=== PATIENT | female | born 1975 | race Caucasian/White ===

== ENCOUNTER 2016-10-15 17:05 | Observation (INO) | payer SELFPAY ==
--- NOTE | ~2016-10-15 | HP ---
History And Physical [id number] [place]. [address] NAME: TOLU ORTEGA : 79 STATUS : ADM Julita PAT#: [id number] AGE: 41 ADM/REG DATE : 10/16/16 MR#: [id number] REPORT SERV DATE: 10/16/16 DICTATED BY: LORNE POEPLES DATE: 10/16/16 REPORT STATUS : Draft TRANSCRIBED BY: MODChristopher DATE: 10/16/16 DATE OF ADMISSION: 10/16/2016 PRIMARY CARE PHYSICIAN: [place] (has appointment on 10/18). PSYCHIATRIST: Viky. CHIEF COMPLAINT: Atypical chest, back, and abdominal pain. HISTORY OF PRESENT ILLNESS: A 41-year-old white female with no known history of CAD states that for the past two days she has had "constant back pain and chest pain" and reports her abdomen has been bloated for the last two to three weeks. She reports regular bowel movements, most recently on October 15. She describes her chest pain as a heaviness and her back pain as a stabbing sensation. At its most intense, she rates her chest pain an 8/10. At time of interview in the [facility], she rates it a 7/10 and is requesting pain medication. Prior to coming to the hospital, she did take some doses of Tylenol with no improvement in her symptoms. The patient denies any personal history of myocardial infarction, stroke, DVT, or pulmonary embolus. The patient denies any recent fever or chills. Describes occasional palpitations. Consumes one to two cups of coffee per day. No syncopal episodes. Denies PND or orthopnea. PAST MEDICAL HISTORY: 1. History of bipolar disorder. 2. Seizure disorder, last seizure 09/2016. 3. Hypertension. 4. Cholesterol, followed by PCP and reportedly "fine.". 5. Denies diabetes. 6. Cirrhosis of the liver. 7. Fibromyalgia. 8. Neuropathy. 9. DDD leading to chronic back pain, previously followed by Pain Management. 10.Hypothyroid, on replacement. 11.Asthma. 12.Obesity. 13.Migraine headaches. 14.Positive family history for early CAD. 15.Ongoing tobacco use. 16.Homeless. PAST SURGICAL HISTORY: 1. Three C-sections. 2. Two laparoscopic surgeries for endometriosis. 3. Hysterectomy. SOCIAL HISTORY: She is single. She has four children. She is unemployed and homeless. History And Physical [address] [place]. [address] NAME: TOLU ORTEGA : 79 STATUS : ADM Julita PAT#: [id number] AGE: 41 ADM/REG DATE : 10/16/16 MR#: [id number] REPORT SERV DATE: 10/16/16 DICTATED BY: LORNE PEOPLES DATE: 10/16/16 REPORT STATUS : Draft TRANSCRIBED BY: ABDELRAHMAN DATE: 10/16/16 Does not have an exercise routine. One pack of cigarettes last two weeks, quit smoking, to excess March 2016, but does continue to drink rarely. Reports that she drank too excess for approximately one year. Denies illicits. FAMILY HISTORY: Mother with "heart issues." Father with CAD and stents in his 50s, remains alive at 70. REVIEW OF SYSTEMS: A 14-point review of systems performed, significant for HPI including snores per report with no formal sleep study. Otherwise, complete review of systems obtained and negative. ALLERGIES: NSAIDS, HIVES, ULCERS; ASPIRIN, HIVES, ULCERS; ROBAXIN, HIVES; DECADRON, CLINDAMYCIN, HIVES, NAUSEA; AUGMENTIN, LATEX, RASH, HIVES; ACETAMINOPHEN, FATTY LIVER. HOME MEDICINES: ProAir p.r.n., Xanax 1 mg four times daily, Zyrtec 10 mg nightly, Cymbalta 60 mg twice daily, Lexapro 20 mg daily, Flonase p.r.n., Neurontin 800 mg twice daily and 400 mg with lunch, Keppra XR 1000 daily and 500 at bedtime, levothyroxine 75 mcg daily, lisinopril/HCTZ 20/25 daily, Zyprexa 2.5 mg twice daily, Topamax 75 mg nightly, Desyrel 100 mg nightly, testosterone daily. PHYSICAL EXAMINATION: BLOOD PRESSURE: Bilateral blood pressures on arrival, right 132/77, left 126/71. PULSE: 79. RESPIRATORY RATE: 18. TEMPERATURE: 98.4. O2 saturation 98% on room air. HEIGHT: 5 feet 6 inches. WEIGHT: 196 pounds. BMI 31.6. GENERAL: Cooperative, in no apparent distress. HEENT: Pupils 2 mm, sclera nonicteric. Nares patent. Moist mucous membranes. No xanthelasma. NECK: Trachea midline, no thyromegaly. No JVD. No bruits. LYMPH: No cervical lymphadenopathy. No supraclavicular lymphadenopathy. RESPIRATORY: Unlabored respirations. Breath sounds clear bilaterally to posterior auscultation. No wheezes or rhonchi. Diminished in the bases. Poor inspiratory effort. CARDIOVASCULAR: Regular rate. No murmur, rub or gallop appreciated. Extremities without edema. Pulses 2+ bilaterally. ABDOMEN: Soft, nontender, normal bowel sounds auscultated throughout. No organomegaly. Obese and distended. SKIN: Warm, dry extremities. No pallor, or cyanosis. PSYCHIATRIC: Appropriate affect. Alert, oriented x3. LABORATORY DATA: Troponin less than 0.02 twice. Potassium 3.9, BUN 19, creatinine 1.32, glucose 100, magnesium 1.8. Ammonia 52. BNP 2.7. WBC 6.8, hemoglobin 12.5, hematocrit 37.3, platelet count 341,000. D-dimer 0.76. UA normal. EKG, sinus rhythm. CT abdomen and pelvis without contrast, appendix distended at 0.9 cm, stable since June 2016 and enlarged since November 2015 exams. No adjacent inflammation to further suggest acute appendicitis. No CT evidence of cirrhosis and no ascites. Tiny fat containing umbilical hernia. History And Physical [address] [address] NAME: TOLU ORTEGA : 79 STATUS : ADM Julita PAT#: [id number] AGE: 41 ADM/REG DATE : 10/16/16 MR#: [id number] REPORT SERV DATE: 10/16/16 DICTATED BY: LORNE PEOPLES DATE: 10/16/16 REPORT STATUS : Draft TRANSCRIBED BY: MODL DATE: 10/16/16 CTA of chest, no evidence of PE. No thoracic aortic aneurysm or dissection demonstrated. Right middle lobe and right upper lobe 4 mm noncalcified pulmonary nodule with recommended CT scan in 12 months. Mild dependent atelectatic changes in the lungs bilaterally. ASSESSMENT AND PLAN: 1. Atypical chest pain. The patient has been observed in the [facility] overnight to rule out myocardial infarction. Two sets of cardiac markers negative. EKG stable. N.p.o. for MPI today, home if negative study. If anything suggestive of ischemia, Cardiology referral will be initiated. Otherwise, the patient has an appointment with her PCP on October 18 and she has been instructed to keep that. 2. Abdominal distention. CT of the abdomen and pelvis unchanged from June 2016. We will check an amylase and lipase. Follow up with her PCP on 10/18/2016 as scheduled. 3. Homeless. The patient states that she will not be allowed to go back to the family home. Will ask Case Management and/or Social Work to see regarding chcf placement after discharge. 4. Ongoing tobacco use. Counseled regarding complete cessation. 5. Previous alcohol abuse. Reportedly quit in March 2016 per report, consumes alcohol rarely. Counseled regarding complete cessation. 6. Chronic pain. The patient requests pain meds during interview to be prescribed at discharge. The patient to follow up with PCP on 10/18 as scheduled. MELY/ABDELRAHMAN Lorne Peoples, MSN, NAIL MACHINE OPERATOR-BC / [id number]
[~2016-10-15 17:05] MED LIST: ACET500CAP PO; ACT300 PO; B1100 PO; CYMBALTA60 PO; FLONASE NAS; IMOD PO; KEPPRA XR500 MG PO; KLONO1 PO; KLOR-CON M2020 MEQ PO; LEVOTHYROXIN75 MCG PO; LEXAPRO20 PO; NEUR400 PO; NYS500UDL PO; OXYCON10 PO; PREV15 PO; PROAIR HFA INH; SUCR PO; TESTOSTERONE TROCHE SL; TOPAMAX25 PO; VITAMIN B-12 PO; VITE PO; XANAX1 MG PO; ZESTORETIC1 TA1 PO; ZYRTEC ALLGY10 MG PO
[2016-10-15 18:03] LABS: BASOPHILS 0.4 %; BASOPHILS ABSOLUTE 0.03 10/3/uL (0.0-0.16); EOSINOPHILS 0.6 %; EOSINOPHILS ABSOLUTE 0.04 10/3/uL (0.0-0.53); ER CBC TAT 0 Hrs 07 Mins; HEMATOCRIT 37.3 % (36.0-48.0); HEMOGLOBIN 12.5 g/dL (12.0-16.0); IMMATURE GRANULOCYTES 0.3 %; IMMATURE GRANULOCYTES ABSOLUTE 0.02 10/3/uL (0.0-0.11); LYMPHOCYTES 30.1 %; LYMPHOCYTES ABSOLUTE 2.05 10/3/uL (0.67-4.30); MEAN CORPUS HGB CONC 33.5 g/dL (32.0-36.0); MEAN CORPUSCULAR HEMOGLOB 31.6 pg (26.0-34.0); MEAN CORPUSCULAR VOLUME 94.4 fL (80-100); MEAN PLATELET VOLUME 9.8 fL (9.2-13.0); MONOCYTES 9.4 %; MONOCYTES ABSOLUTE 0.64 10/3/uL (0.21-1.20); NEUTROPHILS 59.2 %; NEUTROPHILS ABSOLUTE 4.03 10/3/uL (2.02-8.40); PLATELET COUNT 341 10/3/uL (150-400); RBC DISTRIBUTION WIDTH 14.8 % (12.0-16.0); RED CELL COUNT 3.95 10/6/uL (4.0-5.6); WHITE BLOOD CELLS 6.8 10/3/uL (4.5-10.5)
[2016-10-15 18:04] LABS: MANUAL DIFF NO %
[2016-10-15 18:22] LABS: CALCIUM, SERUM 8.5 MG/DL (8.5-10.4); CHEST PAIN PROFILE TAT 0 Hrs 26 Mins; CHLORIDE, SERUM 105 MMOL/L (96-112); CO2 (CARBON DIOXIDE) 27 MMOL/L (24-34); POTASSIUM, SERUM 3.9 MMOL/L (3.5-5.3); SODIUM, SERUM 140 MMOL/L (135-148); TROPONIN I <0.02 NG/ML (<0.05)
[2016-10-15 18:27] LABS: BUN (BLOOD UREA NITROGEN) 19 MG/DL (6-23); CREATININE 1.32 MG/DL (0.55-1.02); GFR AFRICAN AMERICAN 59 ML/MIN (>=60); GFR NON AFRICAN AMERICAN 51 ML/MIN (>=60); GLUCOSE, SERUM 100 MG/DL (60-99)
[2016-10-15] MEDS ORDERED: NEUR400 PO (19:03)
[2016-10-15] MEDS ORDERED: KEPPRA XR500 MG PO (19:04)
[2016-10-15] MEDS ORDERED: TESTOSTERONE PO (19:08)
[2016-10-15] MEDS ORDERED: TRAZ100 PO (19:08)
[2016-10-15] MEDS ORDERED: FLONASE NAS (19:08)
[2016-10-15] MEDS ORDERED: ZESTORETIC1 TA1 PO (19:08)
[2016-10-15] MEDS ORDERED: TOPAMAX25 PO (19:09)
[2016-10-15] MEDS ORDERED: ZYP2 PO (19:09)
[2016-10-15] MEDS ORDERED: CYMBALTA60 PO (19:09)
[2016-10-15] MEDS ORDERED: XANAX1 MG PO (19:10)
[2016-10-15 19:30] LABS: ASCORBIC ACID (UR NOT ORDER) NEG (NEG); BILIRUBIN, URINE NEGATIVE (NEG); ER URINALYSIS TAT 0 Hrs 16 Mins; KETONE, URINE NEGATIVE (NEG); LEUKOCYTE ESTERASE(NOT OR NEG (NEG); NITRITE (URINE) NEG (NEG); WBC (NOT ORDERED) (RFLEX) 2 (0-5)
[2016-10-15 20:26] LABS: PARTIAL THROMBO TIME 27.1 SEC (22.5-37.2)
[2016-10-15 20:35] LABS: ALBUMIN 3.3 G/DL (3.5-5.0); SGOT(AST) 15 U/L (5-40); SGPT(ALT) 25 U/L (5-65); TOTAL BILIRUBIN 0.2 MG/DL (0-1.2); TOTAL PROTEIN 6.7 G/DL (6.0-8.5)
[2016-10-15 20:36] LABS: ALKALINE PHOSPHATASE 76 U/L (45-117); DIRECT BILIRUBIN < 0.1 MG/DL (0.0-0.4); INDIRECT BILIRUBIN(NOT ORDER) 0.1 MG/DL (0.1-0.9)
[2016-10-15 20:40] LABS: D-DIMER QUANTITATIVE 0.76 ug/mLFEU (< 0.50)
[2016-10-16 03:54] LABS: TROPONIN I <0.02 NG/ML (<0.05)
== END 2016-10-16 14:29 | disposition home or self-care (01) ==
LOC: ER 17:05 → CDU1 10-16 01:06 → CDU2 10-16 01:38
PROVIDERS: Clinical Nurse Specialist; Emergency Medicine
DX: R07.89 Other chest pain (principal); R14.0 Abdominal distension (gaseous); G89.29 Other chronic pain; I10 Essential (primary) hypertension; M79.7 Fibromyalgia; G62.9 Polyneuropathy, unspecified; E03.9 Hypothyroidism, unspecified; J45.909 Unspecified asthma, uncomplicated; E66.9 Obesity, unspecified; G43.909 Migraine, unspecified, not intractable, without status migrainosus; Z90.710 Acquired absence of both cervix and uterus; Z91.040 Latex allergy status; Z88.1 Allergy status to other antibiotic agents; Z88.8 Allergy status to other drugs, medicaments and biological substances; Z91.030 Bee allergy status; Z79.899 Other long term (current) drug therapy
CPT/HCPCS: 71010; 71275; 74176; 78452; 80048; 80076; 81001; 82140; 82150; 83690; 83735; 83880; 84484; 85025; 85379; 85610; 85730; 93005; 93017; 96374; 96375; 96376; 99285; A9270-GY; A9502; G0378; J1170; J2405; Q9967

== ENCOUNTER 2016-11-15 14:32 | Emergency (ER) | payer SELFPAY ==
[~2016-11-15 14:32] MED LIST changes: +TESTOSTERONE PO; +TRAZ100 PO; +ZYP2 PO
== END 2016-11-15 17:35 | disposition left against medical advice (07) ==
LOC: ER 14:32
DX: R07.9 Chest pain, unspecified (principal); Z53.21 Procedure and treatment not carried out due to patient leaving prior to being seen by health care provider
CPT/HCPCS: 80048; 83735; 84484; 85025; 85610; 85730; 93005

== ENCOUNTER 2016-11-27 20:58 | Emergency (ER) | payer SELFPAY ==
[2016-11-27 21:02] LABS: BASOPHILS 0.2 %; BASOPHILS ABSOLUTE 0.02 10/3/uL (0.0-0.16); EOSINOPHILS 1.1 %; ER CBC TAT 0 Hrs 13 Mins; HEMOGLOBIN 12.9 g/dL (12.0-16.0); IMMATURE GRANULOCYTES 0.3 %; IMMATURE GRANULOCYTES ABSOLUTE 0.03 10/3/uL (0.0-0.11); LYMPHOCYTES 22.7 %; LYMPHOCYTES ABSOLUTE 1.98 10/3/uL (0.67-4.30); MEAN CORPUS HGB CONC 33.1 g/dL (32.0-36.0); MEAN CORPUSCULAR HEMOGLOB 30.6 pg (26.0-34.0); MEAN CORPUSCULAR VOLUME 92.4 fL (80-100); MEAN PLATELET VOLUME 9.4 fL (9.2-13.0); MONOCYTES 6.9 %; NEUTROPHILS 68.8 %; PLATELET COUNT 321 10/3/uL (150-400); RBC DISTRIBUTION WIDTH 13.4 % (12.0-16.0); RED CELL COUNT 4.22 10/6/uL (4.0-5.6); WHITE BLOOD CELLS 8.7 10/3/uL (4.5-10.5)
[2016-11-27 21:04] LABS: MANUAL DIFF NO %
[2016-11-27 21:06] LABS: ASCORBIC ACID (UR NOT ORDER) NEG (NEG); BILIRUBIN, URINE NEGATIVE (NEG); KETONE, URINE NEGATIVE (NEG); LEUKOCYTE ESTERASE(NOT OR NEG (NEG); NITRITE (URINE) NEG (NEG); WBC (NOT ORDERED) (RFLEX) < 1 (0-5)
[2016-11-27 21:24] LABS: A/G RATIO 0.9 (0.7-1.9); ALBUMIN 3.6 G/DL (3.5-5.0); BUN (BLOOD UREA NITROGEN) 16 MG/DL (6-23); CALCIUM, SERUM 9.2 MG/DL (8.5-10.4); CHLORIDE, SERUM 108 MMOL/L (96-112); CO2 (CARBON DIOXIDE) 26 MMOL/L (24-34); GLOBULIN 3.8 G/DL (2.5-4.1); GLUCOSE, SERUM 106 MG/DL (60-99); SGPT(ALT) 72 U/L (5-65); SODIUM, SERUM 142 MMOL/L (135-148); TOTAL BILIRUBIN 0.4 MG/DL (0-1.2); TOTAL PROTEIN 7.4 G/DL (6.0-8.5)
[2016-11-27 21:28] LABS: ALKALINE PHOSPHATASE 98 U/L (45-117); CREATININE 0.79 MG/DL (0.55-1.02); GFR AFRICAN AMERICAN 109 ML/MIN (>=60); GFR NON AFRICAN AMERICAN 94 ML/MIN (>=60); POTASSIUM, SERUM 4.7 MMOL/L (3.5-5.3)
[2016-11-27 21:29] LABS: SGOT(AST) 48 U/L (5-40)
== END 2016-11-27 22:43 | disposition home or self-care (01) ==
LOC: ER 20:58
PROVIDERS: Physician Assistant
DX: G89.29 Other chronic pain (principal); M54.5 Low back pain; F17.200 Nicotine dependence, unspecified, uncomplicated; J45.909 Unspecified asthma, uncomplicated; K74.60 Unspecified cirrhosis of liver; Z90.710 Acquired absence of both cervix and uterus; Z88.1 Allergy status to other antibiotic agents; Z91.040 Latex allergy status; Z88.6 Allergy status to analgesic agent; Z88.8 Allergy status to other drugs, medicaments and biological substances; Z79.899 Other long term (current) drug therapy
CPT/HCPCS: 80053; 81001; 82140; 83690; 84703; 85025; 96372; 99284